=== PATIENT | male | born 1975 | race African-American/Black ===

== ENCOUNTER 2021-05-26 18:12 | Emergency (ER) | payer MEDICARE ==
[2021-05-26] MEDS ORDERED: Ketorolac Tromethamine 30 MG/ML VIAL ONE (19:16)
== END 2021-05-26 19:46 | disposition home or self-care (01) ==
LOC: ERS 18:12
DX: M54.50 Low back pain, unspecified (principal)
CPT/HCPCS: 96372; 99283; J1885

== ENCOUNTER 2021-06-03 12:51 | Emergency (ER) | payer MEDICARE | END 2021-06-03 14:05 | disposition home or self-care (01) | LOC: ERS 12:51 | DX: M54.50 Low back pain, unspecified (principal) | CPT/HCPCS: 99283 ==